=== PATIENT | female | born 1955 | race Caucasian/White ===

== ENCOUNTER 2022-02-28 17:06 | Observation (INO) | payer MEDICARE ==
[2022-02-28] MEDS ORDERED: Ondansetron ODT 4 MG TAB PO PRN (18:14)
[2022-02-28] MEDS ORDERED: Acetaminophen 325 MG TAB PO PRN (18:14)
[2022-02-28] MEDS ORDERED: Dextrose 50% Abboject 50 ML SYRINGE SLOW IVP PRN (18:21)
[2022-02-28] MEDS ORDERED: Dextrose 5% in Water 1,000 ML IV PRN (18:21)
[2022-02-28 18:37] VITALS: BMI 27.4
[2022-02-28] MEDS: Apixaban 5 MG TAB PO SCH (22:32)
[2022-02-28] MEDS: Zolpidem Tartrate 5 MG TAB PO SCH (22:32)
[2022-02-28] MEDS: Atorvastatin Calcium 40 MG TAB PO SCH (22:32)
[2022-02-28] MEDS: Metoprolol Tartrate 25 MG TAB PO SCH (22:32)
[2022-02-28] MEDS: Sacubitril 49 MG/Valsartan 51 MG TABLET PO SCH (22:39)
[2022-03-01 05:37] LABS: Anion Gap 15 mmol/L (10-20); BUN (Urea Nitrogen) 19 mg/dL (9.8-20.1); Calc. Creatinine Clearance 73 mL/min (70-130); Calcium 9.1 mg/dL (7.8-10.44); Carbon Dioxide 23 mmol/L (23-31); Cardiac Risk 4.3 (Less than 4.5); Chloride 104 mmol/L (98-107); Cholesterol 156 mg/dl (< 200 Desired); Estimated GFR 69; Glucose 266 mg/dL (80-115); HDL Cholesterol 36 mg/dL (>60 Neg Risk); LDL Cholesterol, Calculated 77 mg/dL; Potassium 3.8 mmol/L (3.5-5.1); Sodium 138 mmol/L (136-145); Triglycerides 214 mg/dL (Less than 150)
[2022-03-01] MEDS: HumaLOG 300 UNITS/3 ML VIAL SC PRN ×4 (07:03→21:32)
[2022-03-01] MEDS: Apixaban 5 MG TAB PO SCH ×2 (09:30→21:32)
[2022-03-01] MEDS: Aspirin 81 mg Enteric Coated Tablet PO SCH (09:30)
[2022-03-01] MEDS: Sacubitril 49 MG/Valsartan 51 MG TABLET PO SCH ×2 (09:30→21:32)
[2022-03-01] MEDS: Zolpidem Tartrate 5 MG TAB PO SCH (21:32)
[2022-03-01] MEDS: Atorvastatin Calcium 40 MG TAB PO SCH (21:32)
[2022-03-01] MEDS: Metoprolol Tartrate 25 MG TAB PO SCH (21:32)
[2022-03-02 05:09] LABS: #Basophils 0.1 10x3/uL (0.0-0.2); #Eosinphils 0.2 10x3/uL (0.0-0.5); #Monocytes 0.5 10x3/uL (0.0-1.1); #Neutrophils 2.9 10x3/uL (1.5-8.4); %Eosinophils 3.6 % (0.0-6.0); %Lymphocytes 39.8 % (18.0-47.0); %Monocytes 7.7 % (0.0-10.0); %Neutrophils 47.6 % (40.0-75.0); Hemoglobin 13.9 g/dL (12.0-15.5); Mean Corpuscular HGB CONC 33.7 g/dL (32.0-36.0); Mean Corpuscular Hemoglobin 28.9 pg (27.0-33.0); Mean Corpuscular Volume 85.9 fl (81.6-98.3); Mean Platelet Volume 12.1 fl (7.4-10.4); Platelet Count 226 10x3/uL (150-450); RBC Distribution Width 11.6 % (11.5-14.5); Red Blood Cell (RBC) Count 4.81 10x6/uL (3.90-5.03); White Blood Cell (WBC) Count 6.1 10x3/uL (3.5-10.5)
[2022-03-02 05:34] LABS: Anion Gap 14 mmol/L (10-20); BUN (Urea Nitrogen) 14 mg/dL (9.8-20.1); Calc. Creatinine Clearance 87 mL/min (70-130); Calcium 9.3 mg/dL (7.8-10.44); Carbon Dioxide 24 mmol/L (23-31); Chloride 103 mmol/L (98-107); Estimated GFR 85; Glucose 171 mg/dL (80-115); Potassium 4.2 mmol/L (3.5-5.1); Sodium 137 mmol/L (136-145)
[2022-03-02] MEDS ORDERED: Torsemide 20 MG TAB PO SCH (09:00)
[2022-03-02] MEDS: Aspirin 81 mg Enteric Coated Tablet PO SCH (09:05)
[2022-03-02] MEDS: Apixaban 5 MG TAB PO SCH (09:06)
[2022-03-02] MEDS: Sacubitril 49 MG/Valsartan 51 MG TABLET PO SCH (09:06)
[2022-03-02 09:36] VITALS: BP 125/58; TEMP 97.8
[2022-03-06] MEDS ORDERED: Torsemide 20 MG TAB PO SCH (09:00)
== END 2022-03-02 16:19 | disposition home or self-care (01) ==
LOC: CSHTELE 17:06 → INTOOBSV 17:06
PROVIDERS: ADMIT Internal Medicine; ATTEND Family Medicine
DX: R42 Dizziness and giddiness (principal); I48.0 Paroxysmal atrial fibrillation; E11.9 Type 2 diabetes mellitus without complications; I42.9 Cardiomyopathy, unspecified; Z79.01 Long term (current) use of anticoagulants; Z79.82 Long term (current) use of aspirin; Z79.899 Other long term (current) drug therapy; Z79.84 Long term (current) use of oral hypoglycemic drugs; Z95.810 Presence of automatic (implantable) cardiac defibrillator; Z90.49 Acquired absence of other specified parts of digestive tract
CPT/HCPCS: 70551; 80048 ×2; 80061; 82962 ×2; 85025; G0378 ×3; 36415; 36416; J1815